=== PATIENT | female | born 1945 | race Caucasian/White ===

== ENCOUNTER → 2016-09-26 | Outpatient (CLI) | payer MEDICARE, BC ==
--- NOTE | ~2016-09-26 | ECH ---
Transthoracic Echocardiography Report (TTE) Demographics Patient Name CHERI GRAVES Date of Study 09/26/2016 Patient Number [id number] Visit Number [id number] Date of 1945 Room Number Accession Number [id number] Gender Female Age 71 year(s) Referring Leta Iverson Chief Librarian Branch Theodora Crabtree [facility] Physician Physician Stephanie Harris MD Fireproof Door Maker Physician Mauri Supervising Ordering Physician Leta Iverson MD/SUJEY RUANO Nurse Stress Commercial Collections Specialist Conclusions Contractility Score Summary Normal Left Ventricular contractility was noted. Summary Technically fair exam. The estimated left ventricular ejection fraction is 60-65%. Mild to moderate left ventricular hypertrophy. Diastolic assessment reveals Grade I diastolic dysfunction. Mild mitral regurgitation by color Doppler. The ascending aorta appears mildly dilated. The maximum diameter measures 3.8 cm. Recommendation The patient will be given the results of this study by the physician who ordered the exam. Procedure Type of Study TTE procedure:Echo Complete SF. Procedure Date Date: 09/26/2016 Start: 08:13 AM Technical Quality: Fair due to body habitus. Indications:Shortness of breath and edema. Appropriate Use Criteria: 9 Height: 66 inches Weight: 282 pounds BSA: 2.31 m Rhythm: Within normal limits HR: 72 bpm BP: 143/73 mmHg M-Mode/2D Measurements LV Diastolic Dimension: 4.95 cm LV Systolic Dimension: 4.28 cm LV Septum Diastolic: 1.3 cm LV PW Diastolic: 1.27 cm AO Root Dimension: 2.86 cm Cardiac Output: 4.62 l/min LA Dimension: 4.02 cm Cardiac Index: 2 l/min*m RV Diastolic Dimension: 3.14 cm LA volume index: 26 ml/m LVOT: 1.88 cm LVOT VTI: 23.13 cm RV Base: 3.87 cm LV Stroke volume: 64.17 ml RV Mid: 2.1 cm LV Stroke volume index: 27.78 ml/m RV Length: 6.5 cm Doppler Measurements AV Peak Velocity: 1.6 m/s MV Peak E-Wave: 0.56 m/s AV Peak Gradient: 10.24 mmHg MV Peak A-Wave: 0.84 m/s AV Mean Gradient: 6.28 mmHg MV E/A Ratio: 0.66 LVOT Peak Velocity: 1.03 m/s MV P1/2t: 74.9 msec AV Area (Continuity):1.98 cm MV Deceleration Time: 310.8 msec TR Velocity:1.3 m/s MV Area (PHT): 2.94 cm TR Gradient:6.75 mmHg PV Peak Velocity: 0.8 m/s Estimated RAP:5 mmHg PV Peak Gradient: 2.56 mmHg Estimated RVSP: 12 mmHg Estimated PASP: 11.75 mmHg RA Area: 15.31 cm Findings Left Ventricle The left ventricle is normal in size . Mild to moderate left ventricular hypertrophy. Diastolic assessment reveals Grade I diastolic dysfunction. Right Ventricle Normal right ventricle structure and function. Left Atrium Normal left atrial size. Right Atrium Normal right atrial size. Mitral Valve Normal mitral valve structure and function. Mild mitral regurgitation by color Doppler. Aortic Valve The aortic valve is mildly sclerotic with normal structure and function. Tricuspid Valve Normal tricuspid valve structure and function. Trivial tricuspid regurgitation by color Doppler. Pulmonic Valve The pulmonic valve is not well visualized. Pericardial Effusion No evidence of pericardial effusion. Miscellaneous Visualized portions of the aortic root appear normal in size. The ascending aorta appears mildly dilated. The maximum diameter measures 3.8 cm. Pleural Effusion No evidence of pleural effusion. Contractility Score LV regional wall motion:(0-Non visualized 1-Normal 2-Hypokinesis 3-Akinesis 4-Dyskinesis 5-Aneurysm) Signature
== END | disposition home or self-care (01) ==
LOC: CARD 07:54
DX: R06.02 Shortness of breath (principal); R60.9 Edema, unspecified; I51.7 Cardiomegaly

== ENCOUNTER 2017-04-14 18:20 | Emergency (ER) | payer MEDICARE, BC ==
--- NOTE | 2017-04-17 09:47 | ER ---
ADMIT: 04/14/2017 RM/LOC: ER [facility] MR#: [id number] [facility] [address] [place], [place] [address] CHERI GRAVES [address] [place] [address] Emergency Room Report SEX: F AGE: 72 : 1945 DATE: 04/14/2017 HISTORY OF PRESENT ILLNESS: Cheri is a 72-year-old female presents to the emergency room with shortness of breath that started today. She says she is having a hard time breathing, today it got worse, but started on rather. She has had 1 day left of antibiotics for her urinary tract infection. She feels like her heart is racing and has had a fever. REVIEW OF SYSTEMS: Negative for problems with urination, depression, sore throat or sinus drainage. No nausea, vomiting. Positive for headache. PAST MEDICAL HISTORY: Hypertension. SOCIAL HISTORY: She used to be a smoker and quit 30 plus years ago. PAST SURGICAL HISTORY: Bilateral knee replacement with epidural. ALLERGIES: TO KEFLEX. PHYSICAL EXAMINATION: VITAL SIGNS: Blood pressure 149/92 with a heart rate of 118, respirations 20, temp is 102.4. GENERAL: Alert, moderately anxious. Daughters are at bedside. HEENT: Normal to inspection. NECK: Negative for neck. CHEST: Respirations, retractions, and fast heart rate. CVS: Tachycardic. SKIN: Good color and turgor. ABDOMEN: Nontender. EXTREMITIES: Nontender, no edema. NEURO: Oriented x4. Mood and affect are appropriate. LABORATORY DATA: WBC 7.9, hemoglobin 15.5, hematocrit is 45.7. Lactic acid 2.6. GFR 56. Troponin 0.015. Chemistry: Glucose 101, procalcitonin 0.05. The rbc 1 in the urine and wbc's 4 in the urine. EKG, sinus tachycardia, 113. CT chest negative for pneumonia. ADMIT: 04/14/2017 RM/LOC: [facility] MR#: [id number] [address] [address] CHERI GRAVES[address] [place] [address] Emergency Room Report SEX: F AGE: 72 : 1945 CLINICAL IMPRESSION: Chronic obstructive pulmonary disease exacerbation. In consultation with Dr. Wilson. Gave her DuoNeb, Decadron, and magnesium. Also a gram of Tylenol. Her temperature went down. Her O2 sats went up to 96% on room air. Respirations are 20 instead of 30. Her headaches ceased. She received magnesium, Decadron, IV fluids. She is going to be going home with doxycycline. Encouraged to make an appointment with Dr. Gillette tomorrow morning as a followup and start the antibiotics tomorrow. She is going to be receiving some instructions on how to use an inhaler for tonight. Family comfortable going home. She is not retracting anymore. She feels that she can breathe much better now and her headache is gone. ARMANDO Barros / Lincoln Hudson MD / huil JOB #: [id number] CC: Lincoln Hudson MD, Attending Physician Tracy Gillette MD, Family Physician
== END 2017-04-14 23:30 | disposition home or self-care (01) ==
LOC: ER 18:20
DX: J44.1 Chronic obstructive pulmonary disease with (acute) exacerbation (principal); I10 Essential (primary) hypertension; Z88.8 Allergy status to other drugs, medicaments and biological substances; Z87.891 Personal history of nicotine dependence